=== PATIENT | female | born 1975 | race Caucasian/White ===

== ENCOUNTER 2020-12-16 06:12 | Day surgery (SDC) | payer OTHER ==
[~2020-12-16 06:12] MED LIST: Dextrose 5%-0.45% NaCl 1,000 ML IV SCH; Midazolam 1 MG/ML 2 ML SDV ONE; Sodium Chloride 0.9% 10 ML Syringe FLUSH PRN; fentaNYL 100 MCG/2 ML SDV ONE
[2020-12-16] MEDS ORDERED: fentaNYL 100 MCG/2 ML SDV IV ONE ×3 (06:13→07:28)
[2020-12-16] MEDS ORDERED: Midazolam 1 MG/ML 2 ML SDV IV ONE ×3 (06:13→07:29)
--- NOTE | 2020-12-16 12:23 | OR ---
DATE: 12/16/2020 PROCEDURES: Esophagogastroduodenoscopy and multiple pinch biopsies. INSTRUMENT USED: GIF-HQ190 Olympus video panendoscope. PREMEDICATIONS: Fentanyl 100 mcg intravenous, Versed 2 mg intravenous, nasal O2 cannula. The procedure was done under pulse oximetry, BP recording, and environmental monitoring technician. INDICATION: The patient with persistent abdominal pain, dyspepsia, as well as intermittent diarrhea unexplained and not responsive to medical measures, on PPI. Esophagogastroduodenoscopy is performed for detection of any active erosive lesions, Guerra esophagus and/or malignancy also under consideration, H pylori status to be determined, small bowel biopsies to be obtained for any evidence of celiac disease. Endoscopic hemostasis therapy if needed. PROCEDURE IN DETAIL: The scope was passed with ease. Adequate visualization of the esophagus was made from proximal to distal areas. No upper esophageal lesions identified. No distal esophageal stricture. No uphill or downhill esophageal varices. No Dari-Small tear. No evidence of erosive esophagitis by Mcintosh criteria. No esophageal polyp or tumor mass identified. Z-line was seen at around 39 cm distal to the oral verge, configuration consistent with grade 1 by ZAP classification. No proximal gastric varices noted. Gastric fundus examination by retroflexion showed no polypoid lesions. Scattered gastric erosions were noted in the distal body and antrum without bleeding from them. No gastric ulcer, malignant mass, or vascular ectasia identified. Duodenal bulb showed no ulcer. Visualized second part of the duodenum showed few erosions without bleeding from them. NBI views were obtained, photographs were taken. Numerous pinch biopsies, 4 in number, were taken from different areas of the second part of the duodenum and tissues were also obtained from the erosions. Biopsies were obtained from the duodenal bulb at 9 and 12 o'clock positions and sent for any histopathology. Multiple pinch biopsies were also taken from the gastric antrum and proximal body and sent for PyloriTek test for H pylori and histopathology. No bleeding was noted from any of the visualized areas at the completion of examination. Photographs were taken of the duodenal bulb, gastric antrum, fundus, and distal esophagus. IMPRESSION: Duodenal and gastric erosions. The patient tolerated the procedure well. [facility] /[id number]
--- NOTE | 2020-12-16 19:59 | LETTER ---
12/16/2020 RE: YOLIE ARNETT Froylan : 1975 [address] [address] Dear Ms. Berry: Ms. Yolie Arnett had esophagogastroduodenoscopy done this morning and she tolerated the procedure well. I herewith send a copy of the endoscopy note and photographs for your review. Thank you. Sincerely, [facility] /[id number]
== END 2020-12-16 09:45 | disposition home or self-care (01) ==
LOC: DL.ENDO 06:12
PROVIDERS: ATTEND Internal Medicine Gastroenterology
DX: K31.89 Other diseases of stomach and duodenum (principal); K25.9 Gastric ulcer, unspecified as acute or chronic, without hemorrhage or perforation; K26.9 Duodenal ulcer, unspecified as acute or chronic, without hemorrhage or perforation; E66.09 Other obesity due to excess calories; G43.909 Migraine, unspecified, not intractable, without status migrainosus; G47.30 Sleep apnea, unspecified; N60.19 Diffuse cystic mastopathy of unspecified breast; Z88.5 Allergy status to narcotic agent; Z88.8 Allergy status to other drugs, medicaments and biological substances; Z68.38 Body mass index [BMI] 38.0-38.9, adult
CPT/HCPCS: 87077; J2250; J3010; J7042

== ENCOUNTER 2020-12-19 06:35 | Day surgery (SDC) | payer OTHER ==
[2020-12-19] MEDS ORDERED: Midazolam 1 MG/ML 2 ML SDV IV ONE ×7 (06:36→07:54)
[2020-12-19] MEDS ORDERED: fentaNYL 100 MCG/2 ML SDV IV ONE ×3 (06:36→07:46)
--- NOTE | 2020-12-19 09:17 | OR ---
DATE: 12/19/2020 PROCEDURES: Total colonoscopy, terminal ileoscopy, narrow-band imaging, and multiple pinch biopsies. INSTRUMENT USED: PCF-H190DL Olympus video colonoscope. PREMEDICATIONS: Fentanyl 100 mcg intravenous, Versed 4 mg intravenous. Nasal O2 cannula. The procedure was done under pulse oximetry, BP recording, and engine monitor. INDICATION: The patient with persistent chronic diarrhea unexplained and not responsive to medical measures. Colonoscopic examination is done for detection of any polypoid lesions and removal, biopsies to be obtained for any evidence of microscopic colitis, endoscopic hemostasis therapy if needed. DESCRIPTION OF PROCEDURE: Initial rectal exam showed external hemorrhoidal tags. Rigid anoscopy was normal. The colonoscope was passed with ease up to and beyond the ileocecal junction to visualize normal-appearing terminal ileum, NBI views were obtained, photographs were taken, multiple pinch biopsies were obtained and sent for histopathology. Photographs were taken of the normal- appearing cecum. No bleeding was noted from any of the visualized areas at the commencement of the examination. The bowel preparation [place] scale score 3 in right colon, 2 in transverse and descending colon, total score 7. No bleeding was noted from any of the visualized areas at the commencement of the examination. No stricture. No vascular ectasia. No large isolated ulceration seen. No evidence of diffuse inflammatory bowel disease in the form of friability, contact bleeding, or ulcerations. No polyp or tumor mass identified. Multiple pinch biopsies were obtained from the normal-appearing mucosa of the mid transverse colon, mid descending colon, and rectosigmoid and sent for any histopathologic evidence of microscopic colitis. No bleeding was noted from any of the visualized areas at the completion of examination. IMPRESSION: External hemorrhoids. The patient tolerated the procedure well. [facility] /[id number]
--- NOTE | 2020-12-19 13:00 | LETTER ---
12/19/2020 RE: PAT ARNETT BARBARA : 1975 [place] Kristi [address] [address] Dear Janey Kristi: Ms. Pat Arnett had colonoscopic examination done this morning and she tolerated the procedure well. I herewith send a copy of the endoscopy note and photographs for your review. Thank you. Sincerely, [facility] /[id number]
--- NOTE | 2020-12-23 13:18 | LETTER ---
12/23/2020 RE: YOLIE ARNETT BARBARA : 1975 YENN[address] Smith [facility] and [address] [address] Dear Ms. Berry: Ms. Yolie Arnett had colonoscopic examination done and she tolerated the procedure well. I herewith send a copy of the endoscopy note and photographs for your review. Thank you. Sincerely, [facility] /[id number]
== END 2020-12-19 10:12 | disposition home or self-care (01) ==
LOC: DL.ENDO 06:35
PROVIDERS: ATTEND Internal Medicine Gastroenterology
DX: K52.9 Noninfective gastroenteritis and colitis, unspecified (principal); K64.4 Residual hemorrhoidal skin tags; E66.09 Other obesity due to excess calories; G47.30 Sleep apnea, unspecified; N60.19 Diffuse cystic mastopathy of unspecified breast; Z88.5 Allergy status to narcotic agent; Z88.2 Allergy status to sulfonamides; Z98.890 Other specified postprocedural states; Z88.8 Allergy status to other drugs, medicaments and biological substances; Z68.38 Body mass index [BMI] 38.0-38.9, adult
CPT/HCPCS: J2250; J3010; J7042